=== PATIENT | female | born 1930 | race Caucasian/White ===

== ENCOUNTER → 2018-06-04 | Outpatient (CLI) | payer MEDICARE ==
[~2018-06-04] MED LIST: CEPH500C PO
[2018-06-04 19:29] LABS: BILIRUBIN,URINE NEGATIVE (NEGATIVE); CLARITY,URINE VERY CLOUDY; COLOR,URINE YELLOW; GLUCOSE, URINE (UA) NEGATIVE (NEGATIVE); KETONES,URINE NEGATIVE (NEGATIVE); LEUKOCYTE ESTERASE ,URINE 3+ (NEGATIVE); NITRITE,URINE POSITIVE (NEGATIVE); PH,URINE 5 (5-9); PROTEIN,URINE 1+ (NEGATIVE); UROBILINOGEN,URINE NORMAL (NORMAL)
[2018-06-04 19:41] LABS: BACTERIA,URINE LARGE /HPF; WBC,URINE 50-100 /HPF
== END ==
LOC: LABNPT 19:25
PROVIDERS: ATTEND Internal Medicine
DX: R35.0 Frequency of micturition (principal); R41.0 Disorientation, unspecified; R82.998 Other abnormal findings in urine
CPT/HCPCS: 81000; 87077; 87088; 87186

== ENCOUNTER 2018-12-30 23:06 | Observation (INO) | payer MEDICARE, MEDICAID ==
[~2018-12-30] VITALS: Ht 170 cm; Wt 65.0 kg
[2018-12-30 23:23] LABS: BASOPHILS % (AUTO) 1 % (0-10); EOSINOPHILS # (AUTO) 0.2 10^3/uL (0.0-0.3); EOSINOPHILS % (AUTO) 2 % (0-10); HEMATOCRIT 40 % (35-52); HEMOGLOBIN 13.8 G/DL (11.5-16.0); LYMPHOCYTES % (AUTO) 22 % (12-44); MEAN CORPUSCULAR HEMOGLOBIN 32 PG (25-34); MEAN CORPUSCULAR HGB CONC 35 G/DL (32-36); MEAN CORPUSCULAR VOLUME 93 FL (80-99); MEAN PLATELET VOLUME 8.2 FL (7.4-10.4); MONOCYTES # (AUTO) 0.8 X 10^3 (0.0-1.0); MONOCYTES % (AUTO) 9 % (0-12); NEUTROPHILS # (AUTO) 5.9 X 10^3 (1.8-7.8); NEUTROPHILS % (AUTO) 66 % (42-75); PLATELET COUNT 291 10^3/uL (130-400); RED CELL DISTRIBUTION WIDTH 12.5 % (10.0-14.5); WHITE BLOOD COUNT 8.8 10^3/uL (4.3-11.0)
[2018-12-30 23:30] VITALS: BP_SYST 172; BP_SYST 179; BP_DIAS 76; BP_DIAS 92
--- NOTE | 2018-12-30 23:33 | ED General ---
General Chief Complaint: Trauma-Non Activation Stated Complaint: FALL Nursing Triage Note: PT FOUND ON ALL FOURS AT [facility], PT DENIES PAIN UPON PRESENTATION TO THE ED, EMS STAFF REPORT THE PT HAS BASELINE DEMENTIA, UNKNOWN TO WHAT EXTENT. Nursing Sepsis Screen: No Definite Risk Source of Information: Patient, EMS, Alf Records Exam Limitations: No Limitations History of Present Illness Date Seen by Provider: Dec 30, 2018 Time Seen by Provider: 23:07 Initial Comments This 88-year-old woman presents to the emergency room via EMS from [facility] where she was found in her robe on all fours. There was no witnessed fall. Patient denies remembering any fall or having any pain of any kind. C- collar was placed by EMS as a precaution. C-collar was cleared during examination. Patient does have dementia with impaired cognition at baseline. She was found to be rather hypertensive for prison staff which is unusual for her. She reportedly typically has problems with orthostatic hypotension. Staff at the prison one value waited due to the hypertension. Patient was thoroughly examined and asked about pain multiple times. She is adamant that she has no pain or injury. Allergies and Home Medications Allergies Coded Allergies: Lrfbkip-Ysd-Rfd Reductase Inhibitor (Verified Allergy, Unknown, 08/22/14) meperidine (Verified Allergy, Unknown, 08/22/14) Home Medications Cephalexin Monohydrate 500 Mg Capsule, 1 EACH PO TID Prescribed by: CARISSA GARCIA on 08/22/14 1302 Docusate Sodium 100 Mg Capsule, 100 MG PO DAILY, (Reported) Hydrocodone/Acetaminophen 1 Each Tablet, 1 TAB PO Q6H, (Reported) Patient Home Medication List Home Medication List Reviewed: Yes Review of Systems Review of Systems Constitutional: no symptoms reported EENTM: no symptoms reported Respiratory: no symptoms reported Cardiovascular: see HPI Gastrointestinal: no symptoms reported Genitourinary: no symptoms reported Musculoskeletal: no symptoms reported Skin: no symptoms reported Psychiatric/Neurological: No Symptoms Reported Hematologic/Lymphatic: No Symptoms Reported Immunological/Allergic: no symptoms reported Past Pyjidps-Zeaxan-Cfugfc Hx Past Med/Social Hx: Reviewed and Corrections made Patient Social History Recent Foreign Travel: No Contact w/Someone Who Travel: No Recent Infectious Disease Expo: No Past Medical History Surgeries: Yes Gallbladder, Hysterectomy Respiratory: Yes COPD Cardiac: Yes Atrial Fibrillation, Hypotension (orthostatic), Irregular Heartbeat Neurological: Yes Dementia : No Reproductive Disorders: No Genitourinary: Yes Renal Failure Gastrointestinal: Yes Gastrointestinal Bleed Musculoskeletal: Yes Arthritis Endocrine: No HEENT: No Cancer: No Melanoma Psychosocial: No Depression Family Medical History No Pertinent Family Hx Physical Exam Vital Signs Vital Signs - First Documented 12/30/18 23:08 Temp 36.1 Pulse 61 Resp 20 B/P (MAP) 186/87 (120) Pulse Ox 97 O2 Delivery Room Air Capillary Refill : Less Than 3 Seconds Height, Weight, BMI Height: 5'2" Weight: 120lbs. oz. 54.324938zw; 22.00 BMI Method:Stated General Appearance: No Apparent Distress, WD/WN HEENT: PERRL/EOMI, Normal ENT Inspection, Other (no evidence of injury) Neck: Normal Inspection, Non Tender Respiratory: No Accessory Muscle Use, No Respiratory Distress, Decreased Breath Sounds, Wheezing, Other (prolonged expiratory phase) Cardiovascular: Regular Rate, Rhythm, No Edema, No Murmur Gastrointestinal: Normal Bowel Sounds, Non Tender, Soft Extremity: Normal Inspection, Non Tender, No Pedal Edema Neurologic/Psychiatric: Alert, Normal Mood/Affect, Other (generalized weakness, disoriented due to dementia chronically) Skin: Normal Color, Warm/Dry Progress/Results/Core Measures Suspected Sepsis Recent Fever Within 48 Hours: No Infection Criteria Present: None New/Unexplained Altered Menta: No Sepsis Screen: No Definite Risk SIRS Temperature: Pulse: 61 Respiratory Rate: 20 Laboratory Tests 12/30/18 23:13: White Blood Count 8.8 Blood Pressure 186 /87 Mean: 120 Laboratory Tests 12/30/18 23:13: Creatinine 0.84, Platelet Count 291, Total Bilirubin 0.6 Results/Orders Lab Results Laboratory Tests Test 12/30/18 23:13 12/30/18 23:38 Range/Units White Blood Count 8.8 4.3-11.0 10^3/uL Red Blood Count 4.27 L 4.35-5.85 10^6/uL Hemoglobin 13.8 11.5-16.0 G/DL Hematocrit 40 35-52 % Mean Corpuscular Volume 93 80-99 FL Mean Corpuscular Hemoglobin 32 25-34 PG Mean Corpuscular Hemoglobin Concent 35 32-36 G/DL Red Cell Distribution Width 12.5 10.0-14.5 % Platelet Count 291 130-400 10^3/uL Mean Platelet Volume 8.2 7.4-10.4 FL Neutrophils (%) (Auto) 66 42-75 % Lymphocytes (%) (Auto) 22 12-44 % Monocytes (%) (Auto) 9 0-12 % Eosinophils (%) (Auto) 2 0-10 % Basophils (%) (Auto) 1 0-10 % Neutrophils # (Auto) 5.9 1.8-7.8 X 10^3 Lymphocytes # (Auto) 2.0 1.0-4.0 X 10^3 Monocytes # (Auto) 0.8 0.0-1.0 X 10^3 Eosinophils # (Auto) 0.2 0.0-0.3 10^3/uL Basophils # (Auto) 0.0 0.0-0.1 10^3/uL Sodium Level 130 L 135-145 MMOL/L Potassium Level 4.2 3.6-5.0 MMOL/L Chloride Level 94 L 98-107 MMOL/L Carbon Dioxide Level 23 21-32 MMOL/L Anion Gap 13 5-14 MMOL/L Blood Urea Nitrogen 9 7-18 MG/DL Creatinine 0.84 0.60-1.30 MG/DL Estimat Glomerular Filtration Rate > 60 BUN/Creatinine Ratio 11 Glucose Level 94 70-105 MG/DL Calcium Level 9.3 8.5-10.1 MG/DL Corrected Calcium 9.1 8.5-10.1 MG/DL Total Bilirubin 0.6 0.1-1.0 MG/DL Aspartate Amino Transf (AST/SGOT) 16 5-34 U/L Alanine Aminotransferase (ALT/SGPT) 10 0-55 U/L Alkaline Phosphatase 90 40-136 U/L Troponin I < 0.028 <0.028 NG/ML B-Type Natriuretic Peptide 96.8 <100.0 PG/ML Total Protein 7.0 6.4-8.2 GM/DL Albumin 4.2 3.2-4.5 GM/DL TSH [place] Testing 1.14 0.35-4.94 UIU/ML Urine Color YELLOW Urine Clarity SLIGHTLY CLOUDY Urine pH 7 5-9 Urine Specific [place] 1.010 L 1.016-1.022 Urine Protein NEGATIVE NEGATIVE Urine Glucose (UA) NEGATIVE NEGATIVE Urine Ketones NEGATIVE NEGATIVE Urine Nitrite POSITIVE H NEGATIVE Urine Bilirubin NEGATIVE NEGATIVE Urine Urobilinogen NORMAL NORMAL MG/DL Urine Leukocyte Esterase 2+ H NEGATIVE Urine RBC (Auto) 2+ H NEGATIVE Urine RBC 0-2 /HPF Urine WBC 10-25 H /HPF Urine Squamous Epithelial Cells 2-5 /HPF Urine Crystals NONE /LPF Urine Bacteria LARGE H /HPF Urine Casts NONE /LPF Urine Mucus NEGATIVE /LPF Urine Culture Indicated YES My Orders Orders - NNAMDI LANDIS MD Cbc With Automated Diff (12/30/18:17) Comprehensive Metabolic Panel (12/30/18:) Thyroid Analyzer (12/30/18:17) Ua Culture If Indicated (12/30/18:17) Ed Iv/Invasive Line Start (12/30/18:17) Orthostatic Vital Signs (Adult (12/30/18 23:26) BNP (12/30/18:33) Troponin I (12/30/18 23:33) Ekg Tracing (12/30/18:33) Monitor-Rhythm Ecg Trace Only (12/30/18:33) Albuterol/Ipra Inhalation Soln (Duoneb I (12/30/18 23:45) Svn Small Volume Nebulizer (12/30/18 23:33) Chest 1 View, Ap/Pa Only (12/31/18 00:01) Pelvis (12/31/18 00:01) Ct Head/Cervical Spine Wo (12/31/18 00:01) Urine Culture (12/30/18 23:38) Ceftriaxone For Iv Use (Rocephin For I (12/31/18 00:30) Ns Iv 1000 Ml (Sodium Chloride 0.9%) (12/31/18 00:27) Medications Given in ED Current Medications Medications Dose Ordered Sig/Joanne Route Start Time Stop Time Status Last Admin Dose Admin Albuterol/ Ipratropium 3 ml ONCE ONCE INH 12/30/18 23:45 12/30/18 23:46 DC 12/30/18 23:57 3 ML Ceftriaxone Sodium 1000 mg/ Sterile Water 10 ml @ 200 mls/hr ONCE ONCE IV 12/31/18 00:30 12/31/18 00:32 DC 12/31/18 00:51 200 MLS/HR Sodium Chloride 1,000 ml @ 0 mls/hr Q0M ONCE IV 12/31/18 00:27 12/31/18 00:29 DC 12/31/18 00:49 1,000 MLS/HR Vital Signs/I&O 12/30/18 12/30/18 12/30/18 23:08 23:30 23:57 Temp 36.1 Pulse 61 69 66 Resp 20 B/P (MAP) 186/87 (120) 179/76 (110) 172/92 (118) Pulse Ox 97 96 O2 Delivery Room Air Room Air Capillary Refill : Less Than 3 Seconds Blood Pressure Mean: 120 Progress Note #1: Time: 23:45 Progress Note C-collar was cleared during initial assessment. Patient denied any pain or tenderness in the neck on exam. I did contact [facility] and discuss the situation with one of her care providers. They report she is normally ambulatory with a walker. For our staff in the ER she was unable to stand long enough to obtain orthostatic blood pressures. assisted staff state the patient was actually found on her back and was holding her head and neck at that time claiming pain. They were most concerned about her blood pressure because her blood pressure is normally on the low side. Progress Note #2: Time: 01:30 Progress Note Imaging studies were unremarkable for acute injury. Patient received a DuoNeb treatment which improved her wheezing and diminished breath sounds. Workup revealed urinary tract infection and mild hypokalemia. Rocephin was given for initial treatment. A 1 L normal saline bolus is infusing slowly. After discussion with the [facility] staff and Dr. Sutherland, admission was felt most appropriate due to patient's generalized weakness and multiple medical problems. Patient was cleared from a trauma perspective. She is being admitted for medical reasons, not for trauma. Blood pressure did improve with time wit hout intervention. ECG Initial ECG Impression Date: Dec 31, 2018 Initial ECG Impression Time: 23:52 Initial ECG Rate: 65 Initial ECG Rhythm: Normal Sinus Comment Sinus rhythm with no ST elevation or depression. Left axis deviation by automated read. One PVC noted. Diagnostic Imaging Diagonstic Imaging: Xray Plain Films/CT/US/NM/MRI: chest Comments Chest x-ray viewed by me and report not yet available. Compared with prior. No acute abnormalities appreciated. Diagonstic Imaging: Xray Plain Films/CT/US/NM/MRI: pelvis Comments Pelvis x-ray viewed by me. Report not yet available. Degenerative changes noted without any acute injury identified. Diagonstic Imaging: CT Plain Films/CT/US/NM/MRI: c-spine, head Comments CT head and C-spine viewed by me. [facility] report reviewed. No acute injuries identified. Departure Communication (Admissions) Time/Spoke to Admitting Phy: 01:15 Dr. Sutherland Impression Primary Impression: Urinary tract infection Qualified Codes: N39.0 - Urinary tract infection, site not specified Additional Impressions: COPD exacerbation Generalized weakness Acute hyponatremia Advanced dementia Disposition: ADMITTED INPATIENT Condition: Improved Admissions Decision to Admit Reason: Admit from ER (Trauma) Decision to Admit/Date: Dec 31, 2018 Time/Decision to Admit Time: 01:15 Departure-Patient Inst. Referrals: CUCA LANTIGUA MD (PCP/Family) Primary Care Physician Copy Copies To 1: CUCA LANTIGUA MD, JOSHUA T MD Dec 30, 2018 23:33
[2018-12-30 23:41] LABS: ALANINE AMINOTRANSFERASE 10 U/L (0-55); ALBUMIN 4.2 GM/DL (3.2-4.5); ALKALINE PHOSPHATASE 90 U/L (40-136); BILIRUBIN,TOTAL 0.6 MG/DL (0.1-1.0); BUN/CREATININE RATIO 11; CALCIUM 9.3 MG/DL (8.5-10.1); CARBON DIOXIDE 23 MMOL/L (21-32); CHLORIDE 94 MMOL/L (98-107); CREATININE SERUM 0.84 MG/DL (0.60-1.30); GFR ESTIMATED > 60; GLUCOSE 94 MG/DL (70-105); POTASSIUM 4.2 MMOL/L (3.6-5.0); SODIUM 130 MMOL/L (135-145)
[2018-12-30 23:44] LABS: BILIRUBIN,URINE NEGATIVE (NEGATIVE); CLARITY,URINE SLIGHTLY CLOUDY; COLOR,URINE YELLOW; GLUCOSE, URINE (UA) NEGATIVE (NEGATIVE); KETONES,URINE NEGATIVE (NEGATIVE); LEUKOCYTE ESTERASE ,URINE 2+ (NEGATIVE); NITRITE,URINE POSITIVE (NEGATIVE); PH,URINE 7 (5-9); PROTEIN,URINE NEGATIVE (NEGATIVE)
[2018-12-30] MEDS ORDERED: RT-ALBUTEROL/IPRATROPIUM 3 ML (DUONEB) VIAL INH ONE (23:45)
[2018-12-31] LABS: TSH (THYROID ANALYZER) 1.14 UIU/ML (0.35-4.94)
[2018-12-31 00:03] LABS: BACTERIA,URINE LARGE /HPF; RBC,URINE 0-2 /HPF
[2018-12-31] MEDS ORDERED: NS IV 1000 ML 1,000 ML IV ONE (00:27)
[2018-12-31] MEDS ORDERED: cefTRIAXone FOR IV USE 1,000 MG in WATER (STERILE) FOR INJECTION 10 ML IV ONE (00:30)
[2018-12-31] MEDS ORDERED: MELA5CAP PO (00:57)
[2018-12-31] MEDS ORDERED: ASPI-586 PO (00:57)
[2018-12-31] MEDS ORDERED: HYDR-4226 PO (01:03)
[2018-12-31] MEDS ORDERED: LOPE-145 PO (01:03)
[2018-12-31] MEDS ORDERED: ACET-2267 PO ×2 (01:03→08:54)
[2018-12-31] MEDS ORDERED: ONDA4TAB11 PO (01:03)
[2018-12-31] MEDS ORDERED: CITA10TA7 PO (01:03)
[2018-12-31] MEDS ORDERED: DOCU-143 PO (01:03)
[2018-12-31 01:52] VITALS: BP 139/64
--- NOTE | 2018-12-31 01:52 | NUR ---
HANY COTTON I admitted to room 431-1, with an admitting diagnosis of UTI, WEAKNESS, HYPONATREMIA, COPD EX , on 12/31/18 from ED via [facility], accompanied by STAFF. HANY COTTON I introduced to surroundings, call light, bed controls, phone, TV, temperature control, lights, meal times, smoking policy, visitor policy, side rail policy, bathrooms and showers. Patient Rights given to patient in the handbook.HANY COTTON I verbalizes understanding that [facility] is not responsible for the loss or damage to any personal effects or valuables that are kept in the patients posession during their hospitalization.
[2018-12-31 02:46] VITALS: BP 139/64
[2018-12-31] MEDS ORDERED: ONDANSETRON 4 MG/2 ML (SDV) Z0FRAN IV PRN (03:15)
[2018-12-31 03:48] VITALS: BP 139/64
--- NOTE | 2018-12-31 03:59 | NUR ---
PT. CONFUSED AND TRYING TO GET OUT OF BED. PULLED IV OUT AND IS ANXIOUS. DR. PAYNE NOTIFIED, NEW ORDERS RECEIVED: ATIVAN 1MG IV ONCE
[2018-12-31 04:00] VITALS: BP 181/83
[2018-12-31] MEDS ORDERED: LORazepam INJ 2 MG/ML (ATIVAN) VIAL IVP ONE (04:00)
[2018-12-31] MEDS ORDERED: RT-ALBUTEROL/IPRATROPIUM 3 ML (DUONEB) VIAL INH PRN (04:00)
[2018-12-31] MEDS ORDERED: LORazepam INJ 2 MG/ML (ATIVAN) VIAL ONE (04:02)
[2018-12-31 05:17] LABS: BASOPHILS % (AUTO) 0 % (0-10); EOSINOPHILS # (AUTO) 0.1 10^3/uL (0.0-0.3); EOSINOPHILS % (AUTO) 1 % (0-10); HEMATOCRIT 38 % (35-52); HEMOGLOBIN 13.1 G/DL (11.5-16.0); LYMPHOCYTES # (AUTO) 1.3 X 10^3 (1.0-4.0); LYMPHOCYTES % (AUTO) 16 % (12-44); MEAN CORPUSCULAR HEMOGLOBIN 32 PG (25-34); MEAN CORPUSCULAR HGB CONC 34 G/DL (32-36); MEAN CORPUSCULAR VOLUME 94 FL (80-99); MEAN PLATELET VOLUME 8.3 FL (7.4-10.4); MONOCYTES # (AUTO) 0.7 X 10^3 (0.0-1.0); MONOCYTES % (AUTO) 9 % (0-12); NEUTROPHILS # (AUTO) 6.4 X 10^3 (1.8-7.8); NEUTROPHILS % (AUTO) 74 % (42-75); PLATELET COUNT 269 10^3/uL (130-400); RED CELL DISTRIBUTION WIDTH 12.4 % (10.0-14.5); WHITE BLOOD COUNT 8.6 10^3/uL (4.3-11.0)
[2018-12-31 05:40] LABS: BUN/CREATININE RATIO 10; CALCIUM 8.7 MG/DL (8.5-10.1); CARBON DIOXIDE 22 MMOL/L (21-32); CHLORIDE 100 MMOL/L (98-107); CREATININE SERUM 0.71 MG/DL (0.60-1.30); GFR ESTIMATED > 60; GLUCOSE 86 MG/DL (70-105); POTASSIUM 4.1 MMOL/L (3.6-5.0); SODIUM 133 MMOL/L (135-145)
--- NOTE | 2018-12-31 05:54 | Diagnostic Imaging Report ---
EXAMINATION: AP upright portable chest INDICATION: Altered mental status. Patient found down. COMPARISON: Multiple priors, most recent performed on 06/30/2017. FINDINGS: There is blunting of the left costophrenic angle. The lungs are otherwise clear and the pulmonary vasculature is normal. No pneumothorax or large pleural effusion. Cardiomediastinal silhouette is unchanged. No acute osseous abnormalities appreciated. There is multilevel degenerative changes of the spine. There is severe degenerative change of the right shoulder. Surgical clips are demonstrated in the right upper abdominal quadrant. IMPRESSION: Mild blunting of the left costophrenic angle, likely reflecting atelectasis/scarring, with trace pleural fluid not excluded. Otherwise, no radiographic evidence of acute chest disease. Dictated by: Dictated on workstation # [id number]
[2018-12-31] MEDS: NS IV 1000 ML 1,000 ML IV SCH ×2 (06:00→13:15)
--- NOTE | 2018-12-31 07:19 | Diagnostic Imaging Report ---
PROCEDURE: CT head and CT cervical spine without contrast. TECHNIQUE: Multiple contiguous axial images were obtained through the brain and cervical spine without the use of intravenous contrast. Sagittal and coronal reformations through the cervical spine were then performed. Auto Exposure Controls were utilized during the CT exam to meet ALARA standards for radiation dose reduction. INDICATION: Altered mental status. Patient found down. Concern for head/neck injury. COMPARISON: None available. FINDINGS - CT BRAIN: BRAIN: No parenchymal hemorrhage, midline shift or mass effect. Webster-white matter differentiation is intact. No acute infarct. Moderate periventricular and subcortical low-density white matter changes. Moderate prominence of the ventricles and sulci consistent with cortical and cerebellar parenchymal volume loss. EXTRA-AXIAL SPACES: No subdural or epidural collections. ORBITS AND PARANASAL SINUSES: Visualized orbits and globes are intact. Visualized paranasal sinuses and mastoid air cells are clear. CALVARIUM AND SOFT TISSUES: The calvarium is intact. No fractures or suspicious bony lesions. The extracranial soft tissues are unremarkable. FINDINGS - CT CERVICAL SPINE: SPINE: No fracture. No acute osseous abnormalities. There is normal cervical lordosis. No subluxation. There is mild multilevel degenerative loss of disc height with endplate osteophytes and uncovertebral spurring. Mild multilevel facet arthropathy. No locked or perched facet. SOFT TISSUES AND LUNG APICES: Soft tissues unremarkable. Clear lung apices. IMPRESSION: - CT BRAIN: No acute intracranial pathology. IMPRESSION: - CT CERVICAL SPINE: Multilevel degenerative change, without acute fracture or subluxation. Findings are in agreement with initial teleradiology report. Dictated by: Dictated on workstation # [id number]
--- NOTE | 2018-12-31 07:31 | Diagnostic Imaging Report ---
INDICATION: Patient found on the floor. Pain. EXAMINATION: Pelvis dated 12/31/2018 FINDINGS: Single view of the pelvis demonstrates no evidence of fractures or dislocations. Degenerative findings in both hips. Mild osteopenia present. IMPRESSION: Limited evaluation with no acute findings. If pain persists or patient cannot bear weight, further imaging would be recommended. Dictated by: Dictated on workstation # [id number]
[2018-12-31 08:00] VITALS: BP 152/70
[2018-12-31] MEDS ORDERED: RT-ALBUTEROL/IPRATROPIUM 3 ML (DUONEB) VIAL INH SCH (08:00)
[2018-12-31] MEDS ORDERED: ESTR42.511 VG (08:54)
[2018-12-31] MEDS ORDERED: OMEG10005 PO (08:54)
[2018-12-31] MEDS ORDERED: DIPH25TA65 PO (08:54)
[2018-12-31] MEDS ORDERED: CITA10TA12 PO (08:54)
[2018-12-31] MEDS ORDERED: TRIM100T PO (08:54)
[2018-12-31] MEDS ORDERED: ASCO500T75 PO (08:54)
[2018-12-31] MEDS ORDERED: FEXO180T84 PO (08:54)
[2018-12-31] MEDS ORDERED: ONDA4TAB10 PO (08:54)
[2018-12-31] MEDS ORDERED: POTA10TA10 PO (08:54)
[2018-12-31] MEDS ORDERED: MIDO2.5T PO (08:54)
[2018-12-31] MEDS ORDERED: MAG30ORA2 PO (08:54)
[2018-12-31] MEDS ORDERED: L.AC1CAP6 PO (08:54)
[2018-12-31] MEDS ORDERED: MEMA5TAB PO (08:54)
[2018-12-31] MEDS ORDERED: CHOL5000 PO (08:54)
[2018-12-31] MEDS ORDERED: CRAN400C PO (08:54)
[2018-12-31] MEDS ORDERED: RIVA1PAT3 TD (08:54)
[2018-12-31] MEDS ORDERED: MIRA50TA PO (08:54)
[2018-12-31] MEDS ORDERED: PHOS118S24 PO (08:59)
--- NOTE | 2018-12-31 09:00 | NUR ---
UPDATED MED REC WITH MAR FROM [facility].
--- NOTE | 2018-12-31 11:27 | Physical Therapy Evaluation ---
PT Evaluation-General Medical Diagnosis Admission Date Dec 31, 2018 at 01:19 Medical Diagnosis: UTI Onset Date: Dec 31, 2018 Therapy Diagnosis Therapy Diagnosis: generalized weakness/debility Height/Weight Height (Feet): 5 Height (Inches): 2 Weight (Pounds): 120 Precautions Precautions/Isolations: Standard Precautions Weight Bear Status Right Lower Extremity: Right Full Weight Bearing Left Lower Extremity: Left Full Weight Bearing Referral Physician: Ena Reason for Referral: Evaluation/Treatment Medical History Pertinent Medical History: Atrial Fib, Dementia Current History Patient arrived to ER via EMS from [facility] secondary to unwitnessed fall; patient found on all fours. Reviewed History: Yes Social History Home: Assisted Living Prior Prior Level of Function SCALE: Activities may be completed with or without assistive devices. 5-Okfseztube-mcdmlrp completes the activity by him/herself with no assistance from a helper. 5-Set-up or Clean-up Assistance-helper sets up or cleans up; patient completes activity. [place] assists only prior to or following the activity. 4-Supervision or Touching Assistance-helper provides verbal cues and/or touching/steadying and/or contact guard assistance as patient completes activity. Assistance may be provided throughout the activity or intermittently. 3-Partial/Moderate Assistance-helper does LESS THAN HALF the effort. [place] lifts, holds or supports trunk or limbs, but provides less than half the effort. 2-Substantial/Maximal Assistance-helper does MORE THAN HALF the effort. [place] lifts or holds trunk or limbs and provides more than half the effort. 6-Kdpfmztju-hgipon does ALL the effort. Patient does none of the effort to complete the activity. Or, the assistance of 2 or more helpers is required for the patient to complete the activity. If activity was not attempted, code reason: 7-Patient Refused. 9-Not Applicable-not attempted and the patient did not perform the activity before the current illness, exacerbation or injury. 10-Not Attempted due to Environmental Limitations-(lack of equipment, weather restraints, etc.). 88-Not Attempted due to Medical Conditions or Safety Concerns. Bed Mobility: 5 Transfers (B,C,W/C): 5 Gait: 5 Indoor Mobility (Ambulation): Independent Prior Devices Use: Walker PT Evaluation-Current Subjective Patient agrees to PT at this time. Patient reports that she is feeling achy all over and her body is "beat up" and she is tired. Patient reports that she fell at [place]. Patient is unable to definitively state that she uses a walker at home. Pain Numeric Pain Scale: 4 Location: Lower Location Body Site: Abdomen Pain Description: Ache Objective Patient Orientation: Confused Problem Solving: Poor Attachments: IV ROM/Strength ROM Lower Extremities WFL Strength Lower Extremities grossly 3/5 Integumentary/Posture Integumentary See nursing notes Bowel Incontinence: No Bladder Incontinence: No Posture Extremely kyphotic Neuromuscular (Tone, Coordination, Reflexes) grossly intact Sensory Vision: Functional Hearing: Functional Transfers Roll Left to Right (QC): 3 Lying to Sitting/Side of Bed(Q: 3 Sit to Stand (QC): 4 Gait Does the Patient Walk?: Yes Mode of Locomotion: Walk Anticipated Mode of Locomotion: Walk Distance (FIM): 1=up to 49 ft Walk 10 feet (QC): 4 Walk 50 ft with 2 Turns(QC): 4 Walk 150 ft (QC): 88 Walking 10ft/uneven surface-QC: 88 Distance: 30' Gait Assistive Device: FWW Comments/Gait Description Slow, shuffling, step to pattern, very small steps, kyphotic leaning over walker, difficulty remaining in walker, easily fatigued with ambulation. Balance Sitting Static: Normal Sitting Dynamic: Normal Standing Static: Normal Standing Dynamic: Normal Picking up an Object (QC): 88 Assessment/Needs Patient demonstrated difficulty following commands to roll to side and sit to EOB. Patient able to sit EOB and stand with assistance. During ambulation, patient takes small, shuffling steps, moving very slowly. Posture is kyphotic and leaning over walker, causing difficulty to stay within walker during ambulation. Patient was fatigued after walking from bed to outside door and back. Patient seated in chair with feet up and chair alarm on. Patient had difficulty answering questions. Rehab Potential: Fair PT [employer] Go[employer] PT [employer] Time Frame: Jan 07, 2019 Sit to Lying (QC): 5 Lying-Sitting on Side/Bed(QC): 5 Sit to Stand (QC): 5 Roll Left to Right (QC): 5 Chair/Gqs-de-Vrywp Xfer(QC): 5 Car Transfer (QC): 5 Does the Patient Walk: Yes Distance: 100' Walk 10 feet (QC): 5 Walk 50ft with 2 Turns (QC): 5 Gait Assistive Device: FWW PT Plan Problem List Problem List: Activity Tolerance, Functional Strength, Safety, Balance, Gait, Transfer, Bed Mobility Treatment/Plan Treatment Plan: Continue Plan of Care Treatment Plan: Bed Mobility, Education, Functional Activity Doe, Functional Strength, Gait, Safety, Therapeutic Exercise, Transfers Frequency: 6 times per week Estimated Hrs Per Day: .25 hour per day Patient and/or Family Agrees t: Yes Time/GCodes Time In: 1030 Time Out: 1048 Total Billed Treatment Time: 18 Total Billed Treatment [address] [facility] 18min JUAN RAMOS PT Dec 31, 2018 11:27
[2018-12-31 12:00] VITALS: BP 144/66
--- NOTE | 2018-12-31 12:29 | Short Stay Summary-Hospitalist ---
History of Present Illness HPI/Chief Complaint Pt is an 88yoCF with a PMH of dementia who was found down at her assisted living facility on all fours and brought to the ER for evaluation. She is quite demented and unable to provide any history. Reported she was found down and found to be quite hypertensive so was sent to the ER for evaluation. She underwent trauma evaluation and was cleared but was found to have UTI. She denies any dysuria though I am unsure if that is an accurate answer. She was admitted for observation due to weakness and UTI. This morning she was up and able to ambulate with PT and denies any complaints though she is not aware she is in a hospital, Source: patient Exam Limitations: clinical condition Date Seen 12/31/18 Time Seen by a Provider: 12:26 Attending Physician Sha Sutherland MD PCP Cuca Don MD Referring Physician Date of Admission Dec 31, 2018 at 01:19 Home Medications & Allergies Home Medications Reviewed patient Home Medication Reconciliation performed by pharmacy medication reconciliations technician semiconductor development and/or nursing. Patients Allergies have been reviewed. Allergies Allergies Coded Allergies Hcwqgaw-Yei-Hxj Reductase Inhibitor (Verified Allergy, Unknown, 08/22/14) meperidine (Verified Allergy, Unknown, 08/22/14) Past Dhdnwxr-Jfgemv-Eaneqk Hx Past Med/Social Hx: Reviewed Nursing Past Med/Soc Hx, Reviewed and Corrections made Patient Social History Employed/Student: retired Alcohol Use: Denies Use Recreational Drug Use: No Smoking Status: Never a Smoker 2nd Hand Smoke Exposure: No Recent Foreign Travel: No Contact w/other who traveled: No Recent Infectious Disease Expo: No Immunizations Up To Date Tetanus Booster (TDap): Unknown Pediatric: Yes Date of Pneumonia Vaccine: Dec 31, 2016 Past Medical History Surgeries: Gallbladder, Hysterectomy Cardiac: Atrial Fibrillation, Hypotension (orthostatic), Irregular Heartbeat Neurological: Dementia : No Reproductive: No Genitourinary: Renal Failure Gastrointestinal: Gastrointestinal Bleed, Diverticulosis Musculoskeletal: Arthritis Cancer: Melanoma Psychosocial: Depression History of Blood Disorders: No Family History Reviewed Nursing Family Hx Patient reports no known family medical history. No Pertinent Family Hx Review of Systems ROS-Unable to Obtain: dementia Constitutional: see HPI Physical Exam Physical Exam Vital Signs Vital Signs - First Documented 12/30/18 23:08 Temp 36.1 Pulse 61 Resp 20 B/P (MAP) 186/87 (120) Pulse Ox 97 O2 Delivery Room Air Capillary Refill : Less Than 3 SecondsLess Than 3 Seconds Height, Weight, BMI Height: 5'2" Weight: 120lbs. oz. [id number]; 22.49 BMI Method:Stated General Appearance: No Apparent Distress, WD/WN HEENT: PERRL/EOMI, Moist Mucous Membranes; No Scleral Icterus (L), No Scleral Icterus (R); Other (no evidence of injury) Neck: Normal Inspection, Supple Respiratory: Lungs Clear, No Accessory Muscle Use, No Respiratory Distress Cardiovascular: Regular Rate, Rhythm, No Edema, No Murmur Gastrointestinal: Normal Bowel Sounds, Non Tender, Soft Genital/Rectal: Other (mild suprapubic tenderness) Extremity: Non Tender, No Pedal Edema Neurologic/Psychiatric: Alert, Normal Mood/Affect, Disoriented (oriented to self only), Other (generalized weakness, disoriented due to dementia manager plant nically) Skin: Normal Color, Warm/Dry Results Results/Procedures Labs Laboratory Tests 12/30/18 23:13 12/31/18 04:45 Patient resulted labs reviewed. Imaging: Reviewed Imaging Report Short Stay Diagnosis Discharge Diagnosis-Short Stay Admission Diagnosis UTI Final Discharge Diagnosis UTI Conclusion Plan UTI Continue on Keflex Does not meet sepsis criteria Weakness PT/OT Will set up for HH at [facility] Dementia Will DC back to [facility] today Daughter plans to meet her at facility to assist with transition back per nursing report Diagnosis/Problems Diagnosis/Problems (1) UTI (urinary tract infection) Qualifiers: Qualified Codes: N30.00 - Acute cystitis without hematuria (2) Generalized weakness Status: Acute (3) Acute hyponatremia Status: Acute (4) Advanced dementia Status: Acute Clinical Quality Measures DVT/VTE Risk/Contraindication: Risk Factor Score Per Nursin RFS Level Per Nursing on Admit: 4+=Very High Copy Copies To 1: CUCA DON MD, KATELYN M MD Dec 31, 2018 12:29
[2018-12-31] MEDS ORDERED: CEPH-507 PO (12:31)
--- NOTE | 2018-12-31 12:34 | Discharge Inst-Simple/Standard ---
Discharge Inst-Standard Reconcile Patient Problems Problems Reviewed?: Yes Discharge Medications New, Converted or Re-Newed RX: Transmitted to Pharmacy Patient Instructions/Follow Up Plan of Care/Instructions/FU: Please continue to take your medications as written. Please follow up with your PCP in the next week to follow up this hospital stay. Activity as Tolerated: Yes Discharge Diet: No Restrictions Return to The Hospital For: Falls, worsening confusion, fevers, chest pain, shortness of breath, if you feel you are getting worse. EDWARD COVINGTON MD Dec 31, 2018 12:34
--- NOTE | 2018-12-31 13:22 | D/C HH Face to Face Order ---
D/C Face to Face Orders Reconcile Patient Problems Problems Reviewed?: Yes Instructions for Patient [facility], Patient Instructions/FollowUp: Please continue to take your medications as written. Physician to follow Patient: Dr Don Discharge Diet for Home: No Restrictions Patient Data-Allergies,Ht & Wt Patient Allergies: Coded Allergies: Dppgahk-Znq-Fjn Reductase Inhibitor (Verified Allergy, Unknown, 08/22/14) meperidine (Verified Allergy, Unknown, 08/22/14) Height (Feet): 5 Height (Inches): 2 Weight (Pounds): 120 Home Health Need/Face to Face Date of Face to Face: Dec 31, 2018 Clinical Findings: Generalized weakness and fatigue I have seen Pt [id number]: Yes Discharged To: Home Diagnosis/Conditions: UTI, Dementia, Weakness Patient is Homebound due to: CognItive deficits, Oksana fall risk due to instabilty, Muscle weakness Homebound Status Due to the above stated illness, injury or surgical procedure (medical condition or diagnosis) and associated clinical findings, the patient is homebound because of his/her inability to leave home except with aid of a supportive device and/or person AND leaving the home requires a considerable and taxing effort or is medically contraindicated. Pt req the following assistanc: Aid of another person, [facility] Home Health Nursing Orders Home Health Services Order: Die Maker-Evaluate & Treat, Physical Therapy-Evaluate & Treat Home Health Infusion Therapy Line Start Date: Dec 30, 2018 Therapy Orders Therapy Orders: OT (must have SN or PT order), Physical Therapy Therapy Specific Orders: Eval assistive deivces, Teach strategies/cognitive deficits, Teach enviro modifications/safety, Gait training, Increase strength/endurance Certify Stmt I certify that this patient is under my care and that I, a nurse practitioner or a physician; a assistant kitchen manager working with me, had a face to face encounter that - meets the physician face to face encounter requirements with this patient as dated. EDWARD COVINGTON MD Dec 31, 2018 13:22
[2019-01-01] MEDS ORDERED: cefTRIAXone 1,000 MG/SWFI 10 ML IV PUSH IV SCH ×2
== END 2018-12-31 14:45 | disposition home or self-care (01) ==
LOC: EDUNIT# 23:06 → ER 23:07 → INTOOBSV 12-31 01:19 → 4TH 12-31 01:19
PROVIDERS: ADMIT Internal Medicine; ATTEND Internal Medicine
DX: N39.0 Urinary tract infection, site not specified (principal); I48.91 Unspecified atrial fibrillation; I10 Essential (primary) hypertension; J44.9 Chronic obstructive pulmonary disease, unspecified; M19.90 Unspecified osteoarthritis, unspecified site; E78.1 Pure hyperglyceridemia; F32.9 Major depressive disorder, single episode, unspecified; F03.90 Unspecified dementia, unspecified severity, without behavioral disturbance, psychotic disturbance, mood disturbance, and anxiety; Z88.8 Allergy status to other drugs, medicaments and biological substances; Z79.891 Long term (current) use of opiate analgesic; Z90.89 Acquired absence of other organs; Z90.710 Acquired absence of both cervix and uterus; Z85.828 Personal history of other malignant neoplasm of skin; Z79.899 Other long term (current) drug therapy
CPT/HCPCS: 36415; 70450; 71045; 72125; 72170; 80048; 80053; 81000; 83880; 84443; 84484; 85025; 87077; 87088; 87186; 93005; 93041; 94640; 96361; 96374; G0378

== ENCOUNTER → 2019-01-29 | Outpatient (CLI) | payer MEDICARE, MEDICAID ==
[~2019-01-29] MED LIST changes: +ACET-2267 PO; +ASCO500T75 PO; +ASPI-586 PO; +CEPH-507 PO; +CHOL5000 PO; +CITA10TA12 PO; +CITA10TA7 PO; +CRAN400C PO; +DIPH25TA65 PO; +DOCU-143 PO; +ESTR42.511 VG; +FEXO180T84 PO; +HYDR-4226 PO; +L.AC1CAP6 PO; +LOPE-145 PO; +MAG30ORA2 PO; +MELA5CAP PO; +MEMA5TAB PO; +MIDO2.5T PO; +MIRA50TA PO; +OMEG10005 PO; +ONDA4TAB10 PO; +ONDA4TAB11 PO; +PHOS118S24 PO; +POTA10TA10 PO; +RIVA1PAT3 TD; +TRIM100T PO
[2019-01-29 09:57] LABS: BILIRUBIN,URINE NEGATIVE (NEGATIVE); CLARITY,URINE CLOUDY; GLUCOSE, URINE (UA) NEGATIVE (NEGATIVE); KETONES,URINE NEGATIVE (NEGATIVE); LEUKOCYTE ESTERASE ,URINE TRACE (NEGATIVE); NITRITE,URINE POSITIVE (NEGATIVE); PH,URINE 6.5 (5-9); PROTEIN,URINE NEGATIVE (NEGATIVE)
[2019-01-29 10:07] LABS: BACTERIA,URINE LARGE /HPF; RBC,URINE 0-2 /HPF
[2019-01-29 10:11] LABS: COLOR,URINE YELLOW
== END ==
LOC: LABNPT 09:40
DX: R46.89 Other symptoms and signs involving appearance and behavior (principal); Z87.440 Personal history of urinary (tract) infections
CPT/HCPCS: 81000; 87077; 87088; 87184; 87186